=== PATIENT | male | born 1975 | race Two or more races ===

== ENCOUNTER 2016-12-22 08:32 | Emergency (ER) | payer MEDICAID ==
[~2016-12-22] VITALS: Ht 185.4 cm; Wt 127.5 kg
[~2016-12-22 08:32] MED LIST: DOCU-94; IBUP800T41; MORP1CAP32; NOR10T; TRAZ50T
[2016-12-22 08:41] VITALS: BP 175/110
[2016-12-22] MEDS ORDERED: ALBUTEROL SULF 2.5 MG/0.5ML(0.5%) NEB SOLN NEB ONE (09:00)
[2016-12-22] MEDS ORDERED: methylPREDNISolone SOD SUCC 125 MG/2 ML VL IM ONE (09:00)
[2016-12-22] MEDS ORDERED: IPRATROPIUM BROM 0.5 MG/2.5ML INH SOL NEB ONE (09:00)
== END 2016-12-22 09:28 | disposition home or self-care (01) ==
LOC: ER 08:32
DX: J45.901 Unspecified asthma with (acute) exacerbation (principal); J02.9 Acute pharyngitis, unspecified
CPT/HCPCS: 94640; 96372; 99283; J2930

== ENCOUNTER 2017-01-01 19:40 | Emergency (ER) | payer MEDICAID ==
[~2017-01-01] VITALS: Ht 182.9 cm; Wt 131.1 kg
[2017-01-01 20:40] LABS: Basophils # (auto) 0 uL; Basophils % (auto) 0.4 % (0.0-2.0); Eosinophils # (auto) 0.1 uL; Eosinophils % (auto) 0.8 % (0.0-7.0); Hematocrit 43.4 % (41.0-53.0); Hemoglobin 14.7 g/dL (13.5-17.5); Lymphocytes % (auto) 28.7 % (10.0-50.0); Mean Corpuscular Hemoglobin 30.1 pg (28.0-32.0); Mean Corpuscular Hgb Conc. 33.8 g/dL (32.0-36.0); Mean Platelet Volume 8.4 fL (7.4-10.4); Monocytes # (auto) 0.5 uL; Monocytes % (auto) 5.1 % (0.0-12.0); Neutrophils # (auto) 6.8 uL; Platelet Count (auto) 280 10^3/uL (140-450); Red Cell Distribution Width 13.3 % (11.6-16.0); White Blood Cell 10.5 10^3/uL (4.4-10.8)
[2017-01-01 20:54] VITALS: BP 121/73
[2017-01-01 20:57] LABS: Albumin 4.3 g/dL (3.4-5.0); Anion Gap 9 (5-15); Aspartate Aminotransferase 15 U/L (15-37); BUN/Creatinine Ratio 21.3; Blood Urea Nitrogen 19 mg/dL (7-18); Calcium 8.7 mg/dL (8.5-10.1); Carbon Dioxide 23 mmol/L (21-32); Chloride 112 mmol/L (98-107); GFR African American 122 mL/min; GFR Non-African American 101 mL/min; Glucose 114 mg/dL (74-106); Potassium 3.5 mmol/L (3.5-5.1); Sodium 144 mmol/L (136-145)
[2017-01-01] MEDS ORDERED: methylPREDNISolone SOD SUCC 125 MG/2 ML VL IV ONE (21:00)
[2017-01-01] MEDS ORDERED: ALBUTEROL SULF 2.5 MG/0.5ML(0.5%) NEB SOLN NEB ONE (21:00)
[2017-01-01] MEDS ORDERED: IPRATROPIUM BROM 0.5 MG/2.5ML INH SOL NEB ONE (21:00)
[2017-01-01] MEDS ORDERED: SODIUM CHLORIDE 0.9% 1,000 ML IV ONE (21:00)
[2017-01-01 21:01] LABS: Alkaline Phosphatase 83 U/L (45-117); Bilirubin, Total 0.3 mg/dL (0.2-1.0); Total Protein 7.1 g/dL (6.4-8.2)
[2017-01-01 21:08] LABS: INR 0.99 (0.9-1.15); Partial Thromboplastin Time 25.9 sec (22.64-33.71); Prothrombin Time 10.7 sec (9.37-12.3)
== END 2017-01-01 23:03 | disposition home or self-care (01) ==
LOC: ER 19:42
DX: J45.901 Unspecified asthma with (acute) exacerbation (principal); Z90.49 Acquired absence of other specified parts of digestive tract
CPT/HCPCS: 36415; 71010; 80053; 84484; 85025; 85610; 85730; 93005; 94640; 96361; 96374; 99285; J2930; J7030

== ENCOUNTER 2017-03-03 19:32 | Emergency (ER) | payer MEDICAID ==
[~2017-03-03] VITALS: Ht 182.9 cm; Wt 126.1 kg
[2017-03-03 20:18] VITALS: BP 124/85
[2017-03-03] MEDS: HYDROcodone-ACET 10/325MG TAB PO ONE (20:30)
[2017-03-03] MEDS: KETOROLAC TROMETH 60MG/2ML VIAL IM ONE (20:31)
== END 2017-03-03 20:59 | disposition home or self-care (01) ==
LOC: ER 19:36
DX: S82.52XA Displaced fracture of medial malleolus of left tibia, initial encounter for closed fracture (principal); J45.909 Unspecified asthma, uncomplicated; Z90.89 Acquired absence of other organs; Z88.0 Allergy status to penicillin; X50.0XXA Overexertion from strenuous movement or load, initial encounter; Y93.89 Activity, other specified; Y99.8 Other external cause status; Y92.89 Other specified places as the place of occurrence of the external cause
CPT/HCPCS: 29515; 73610; 73630; 96372; 99284; J1885